=== PATIENT | male | born 1970 | race Caucasian/White ===

== ENCOUNTER 2020-09-03 22:37 | Emergency (ER) | payer BC ==
[~2020-09-03] VITALS: Ht 175.3 cm; Wt 131.5 kg
[2020-09-03 22:39] VITALS: BP 160/102
[2020-09-03] MEDS ORDERED: NORCO5 PO (23:12)
== END 2020-09-03 23:19 | disposition home or self-care (01) ==
LOC: ER 22:37
DX: S92.412A Displaced fracture of proximal phalanx of left great toe, initial encounter for closed fracture (principal); I10 Essential (primary) hypertension; Z90.49 Acquired absence of other specified parts of digestive tract; X58.XXXA Exposure to other specified factors, initial encounter; Y93.89 Activity, other specified; Y92.89 Other specified places as the place of occurrence of the external cause; Y99.8 Other external cause status